=== PATIENT | male | born 1990 | race Caucasian/White ===

== ENCOUNTER 2017-05-04 21:20 | Emergency (ER) | payer BC ==
[~2017-05-04] VITALS: Ht 188 cm; Wt 90.9 kg
[2017-05-04 21:21] VITALS: BP 129/72; TEMP 98.2
[2017-05-04] MEDS ORDERED: ANUSOL-HC2.5% RC (22:41)
[2017-05-04] MEDS ORDERED: NAPROXEN 3375 MG/TAB PO (22:43)
[2017-05-04 23:04] VITALS: PULSE 88
== END 2017-05-04 23:05 | disposition home or self-care (01) ==
LOC: COL.ER 21:20
DX: K64.5 Perianal venous thrombosis (principal)
CPT/HCPCS: J1885